=== PATIENT | female | born 1945 | race Two or more races ===

== ENCOUNTER 2022-12-26 15:06 | Emergency (ER) | payer OTHER ==
[~2022-12-26] VITALS: Ht 170.2 cm; Wt 68.0 kg
[2022-12-26] MEDS ORDERED: LASIX40 MG PO (15:17)
[2022-12-26] MEDS ORDERED: TOPROL XL50 M1 PO (15:17)
[2022-12-26] MEDS ORDERED: ELIQUIS5 M1 PO (15:17)
[2022-12-26] MEDS ORDERED: ATORVASTATIN CA10 MG PO (15:18)
[2022-12-26] MEDS ORDERED: COZAAR25 MG PO (15:18)
[2022-12-26] MEDS ORDERED: SYNTHROID100 MCG PO (15:18)
== END 2022-12-26 19:35 | disposition home or self-care (01) ==
LOC: ER 15:06
DX: S89.82XA Other specified injuries of left lower leg, initial encounter (principal); W18.39XA Other fall on same level, initial encounter; Y93.89 Activity, other specified; Y92.89 Other specified places as the place of occurrence of the external cause; S89.81XA Other specified injuries of right lower leg, initial encounter